=== PATIENT | male | born 1980 | race Caucasian/White ===

== ENCOUNTER 2017-10-01 20:40 | Emergency (ER) | payer BC, OTHER, SELFPAY ==
[~2017-10-01] VITALS: Ht 180.3 cm; Wt 81.6 kg
== END 2017-10-01 21:41 | disposition home or self-care (01) ==
LOC: FSED 20:40
DX: T20.66XA Corrosion of second degree of forehead and cheek, initial encounter (principal); T20.67XA Corrosion of second degree of neck, initial encounter; T22.612A Corrosion of second degree of left forearm, initial encounter; T54.2X1A Toxic effect of corrosive acids and acid-like substances, accidental (unintentional), initial encounter; T32.0 Corrosions involving less than 10% of body surface; Y99.0 Civilian activity done for income or pay
CPT/HCPCS: 99282